=== PATIENT | male | born 1990 | race Caucasian/White ===

== ENCOUNTER 2023-06-17 09:04 | Outpatient (CLI) | payer SELFPAY | END 2023-06-17 23:59 | disposition home or self-care (01) | LOC: RAD 09:04 | PROVIDERS: ATTEND Nurse Practitioner Family | DX: R55 Syncope and collapse (principal) | CPT/HCPCS: 95819 ==

== ENCOUNTER 2024-06-24 13:03 | Emergency (ER) | payer OTHER, SELFPAY ==
[~2024-06-24] VITALS: Ht 162.6 cm; Wt 65.8 kg
[2024-06-24] MEDS: famotidine 20mg tablet PO ONE (13:15)
[2024-06-24] MEDS: dexamethasone sod phosphate 10mg/ml inj PO STA (13:15)
[2024-06-24] MEDS: diphenhydrAMINE 50 mg/ml inj IM ONE (13:17)
[2024-06-24] MEDS: ipratropium/albuterol 3ml nebule NEB STA (13:22)
[2024-06-24 13:23] VITALS: PULSE 122; RESP 20; O2SAT 99
[2024-06-24 13:28] VITALS: PULSE 130; RESP 20; O2SAT 98
[2024-06-24] MEDS: albuterol 2.5 MG/3 ML nebule CONTNEB PRN (15:01)
[2024-06-24] MEDS: albuterol 2.5 MG/3 ML nebule NEB ONE (15:05)
[2024-06-24 15:09] VITALS: PULSE 112; RESP 22; O2SAT 96
[2024-06-24] MEDS ORDERED: PRED20TA PO (15:41)
[2024-06-24] MEDS ORDERED: ALBU8HFA INH (15:41)
[2024-06-24 15:49] VITALS: BP 131/87; PULSE 137; RESP 20; TEMP 98.6; O2SAT 96
== END 2024-06-24 15:50 | disposition home or self-care (01) ==
LOC: ER 13:04
DX: T78.49XA Other allergy, initial encounter (principal); J30.81 Allergic rhinitis due to animal (cat) (dog) hair and dander; R06.02 Shortness of breath; Z91.09 Other allergy status, other than to drugs and biological substances; X58.XXXA Exposure to other specified factors, initial encounter
CPT/HCPCS: 71045; 94640; 96372; 99284; J1100; J1200; 94760